=== PATIENT | male | born 1960 | race Caucasian/White ===

== ENCOUNTER 2019-01-16 02:45 | Emergency (ER) | payer MEDICAID, OTHER ==
[2019-01-16 03:55] LABS: URINE BLOOD (Dip) POC Negative (NEGATIVE); URINE GLUCOSE (Dip) POC Negative (NEGATIVE); URINE KETONES (Dip) POC Negative (NEGATIVE); URINE LEUKOCYTE EST (Dip) POC Negative (NEGATIVE); URINE NITRITE (Dip) POC Negative (NEGATIVE); URINE TOTAL PROTEIN POC Negative (NEGATIVE)
== END 2019-01-16 04:43 | disposition home or self-care (01) ==
LOC: FTE 02:45
DX: I10 Essential (primary) hypertension (principal)
CPT/HCPCS: 81003; 93005; 99283-25